=== PATIENT | male | born 2000 | race Caucasian/White ===

== ENCOUNTER 2025-04-29 19:34 | Emergency (ER) | payer SELFPAY ==
[~2025-04-29] VITALS: Ht 167.6 cm; Wt 111.6 kg
[2025-04-29] MEDS: ACETAMINOPHEN 325 MG TAB PO ONE (20:21)
[2025-04-29] MEDS: ONDANSETRON HCL 4 MG ORAL DISINTEGRATING TAB PO ONE (20:21)
[2025-04-29 20:36] LABS: STREPTOCOCCUS GRP A ANTIGEN NEGATIVE (NEGATIVE)
[2025-04-29 20:39] LABS: CORONAVIRUS COVID-19 AG NEGATIVE (NEGATIVE); INFLUENZA A AG NEGATIVE (NEGATIVE); INFLUENZA B AG NEGATIVE (NEGATIVE)
[2025-04-29 21:37] VITALS: PULSE 98; RESP 18; TEMP 98.5; O2SAT 98
== END 2025-04-29 23:01 | disposition home or self-care (01) ==
LOC: ER 22:46
DX: R50.9 Fever, unspecified (principal); J06.9 Acute upper respiratory infection, unspecified; R05.9 Cough, unspecified; Z11.52 Encounter for screening for COVID-19
CPT/HCPCS: 83518; 87070; 87428; 99283; Q0162